=== PATIENT | male | born 1990 | race Caucasian/White ===

== ENCOUNTER → 2018-01-06 16:53 | Outpatient (CLI) | payer OTHER, BC, SELFPAY ==
[2018-01-06 16:27] VITALS: BMI 35.4
--- NOTE | 2018-01-06 17:35 | RAD_ITS ---
HISTORY: PATIENT STATES HE BENT HIS LEFT KNEE BACKWARDS ABOUT 1 WEEK AGO. PAIN IN ENTIRE LEFT KNEE. COMPARISON: None FINDINGS: XR Knee Complete 4 Views No fracture, dislocation, or bony abnormality. Joint spaces are preserved. No loose body. No joint effusion. Chronic benign appearing soft tissue calcifications at the medial knee and proximal left leg. RAD/Knee 4 or More Views IMPRESSION: 1. No fracture or bony abnormality. No acute disease. 2. Chronic benign appearing soft tissue calcifications at the medial knee and proximal left leg. at 2340 Reported and signed by: Noe Simon MD Electronically Signed: Noe Simon, at 23:38 EST Tel , Service support ,
== END ==
PROVIDERS: Referring Provider Physician Assistant; Visit Provider Physician Assistant
DX: S86.912A Strain of unspecified muscle(s) and tendon(s) at lower leg level, left leg, initial encounter (principal)
CPT/HCPCS: 73564

== ENCOUNTER → 2018-01-31 10:07 | Outpatient (CLI) | payer OTHER, SELFPAY ==
[2018-01-06 16:27] VITALS: BMI 35.4
--- NOTE | 2018-01-31 10:40 | MRI_ITS ---
STUDY: MRI LEFT KNEE REASON FOR EXAM: Pain after hyperextension injury 1 month ago. TECHNIQUE: Standardized fat and water weighted pulse sequences were obtained in all 3 orthogonal planes. COMPARISON: Radiographs 01/06/2018. FINDINGS: Normal medial meniscus. Normal hyaline cartilage of the medial femorotibial compartment. Normal medial femoral condyle and tibial plateau. Normal medial collateral ligamentous complex (MCL). Normal distal semimembranosus, gracilis and semitendinosus tendons. Normal lateral meniscus. Normal hyaline cartilage of the lateral femorotibial compartment. There is a mild bone contusion of the proximal tibia adjacent to the proximal tibiofibular articulation (T2 coronal images 15, 16). Normal proximal tibiofibular articulation. Normal lateral collateral (fibular) ligament. Normal popliteus tendon. Normal biceps femoris tendon. Normal anterior cruciate ligament (ACL). Normal posterior cruciate ligament (PCL). There is lateral tilt and slight lateral subluxation of the patella (T2 axial image 8). Normal hyaline cartilage of the patellofemoral compartment. Normal medial and lateral patellar retinaculum. Normal quadriceps tendon. Normal patellar tendon. Normal Hoffa's fat pad. There is a minimal volume of fluid in the knee joint. There is a thin medial patellar plica. The soft tissues are unremarkable. There is a nondisplaced fracture of the head of the fibula (proton-density coronal images 12-14) with associated bone edema. MRI/Lower Ext Joint Only (Routine) IMPRESSION: Nondisplaced fracture of the head of the fibula. Mild bone contusion of the proximal tibia. Lateral tilt and slight lateral subluxation of the patella. Electronically Signed: Martin Wright MD at 12:27 EST Tel , Service support ,
== END ==
PROVIDERS: Referring Provider Physician Assistant; Visit Provider Physician Assistant
DX: S82.832A Other fracture of upper and lower end of left fibula, initial encounter for closed fracture (principal); S83.012A Lateral subluxation of left patella, initial encounter; S86.912A Strain of unspecified muscle(s) and tendon(s) at lower leg level, left leg, initial encounter; S80.02XA Contusion of left knee, initial encounter; X50.1XXA Overexertion from prolonged static or awkward postures, initial encounter; Y99.0 Civilian activity done for income or pay
CPT/HCPCS: 73721

== ENCOUNTER 2018-04-21 14:30 | Outpatient (RCR) | payer OTHER, SELFPAY ==
[2018-02-04 08:08] VITALS: BMI 35.4
--- NOTE | 2018-02-16 17:06 | HP.PTEVAL ---
Patient's Visit Information KYRA PATRICIO is a 28 year old M referred to Physical Therapy by Mae Acuna DO with a diagnosis of LEFT KNEE STRAIN OF LOWER LEG. Date of Evaluation: 02/16/18 Physical Therapist: Pedro Olson PT, Cert MDT, OCS - Visit Plan Frequency: 3x /Week Duration: 6 Weeks Plan: PATIENT HAS NON-DIDPLACED FIBULAR HEAD FRACTURE. ROM/STRENGTHENING QUAD/HAMS/HIP,FUMCTION STRENGTHENING,FLEXABLITY,BIKE - Subjective Findings: This 28 y/o maale presents to physical therapy with left knee strain. Patient injuried left knee Nov 7 slipped rolling fridgerator thus caused knee into hyperextension. Lisandro has severe pain seen DR 2 [facility]. Patient had x-rays then had MRI showed non displaced fx of fibular head. Then Seen orthopedics at [facility] recommended PT.Patient had pain lateral knee . Symptoms worse with standing,squatting,kneeling. Sleeping good nigh. Denies parathesia/tingling. 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 Patient injury affect QOL and RTW. SOCAIL : single. 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 PALPTION: unremarkable. EDEMA: unremarkable. GAIT: normal mundo. AROM: left 0-120 degrees,right 0-130 degrees supine knee flexion. MMT: quads/hams 4/5,hip abd/add/extension 4-/5,ankle 5/5. STAIR: alternating. FLEXABLITY: hams mod tight,quads min tight - Special Tests L Knee Ezekiel - Meniscus: Negative L Knee Apley - Meniscus: Negative L Knee Disco Test - Meniscus: Negative L Knee Kal - ACL: Negative L Knee Anterior Drawer - ACL: Negative L Knee Posterior Drawer - PCL: Negative L Knee Valgus - MCL: Negative L Knee Varus - LCL: Negative - Goals Goal 1:: Independant with HEP. Goal Time Frame: 4-6 Weeks Goal 2:: Patient to improve AROM left knee symmtrical left to right to improve function. Goal Time Frame: 4-6 Weeks Goal 3:: Patient to improve strength quads/hams 5/5 and hip 4/5 to improve function. Goal Time Frame: 4-6 Weeks Goal 4:: Patient return to job demands with limiations Goal Time Frame: 4-6 Weeks Goal 5:: Patient to improve LFES score by 1-15 points to improve QOL and job demands Goal Time Frame: 4-6 Weeks - Rehabilitation Potential Physical Therapy Diagnosis: Patient slipped at [employer] hyperextended knee causing a non displaced fibular head fracture. with pain loss of ROM and function strength and deficits impairs job demands. Rehabilitation Potential: Good - Anticipated Interventions Patient/Client Instruction: Educate patient on: Condition, Plan of Care For the Purpose of:: To decrease pain, To increase ROM, To improve muscle performance and motor function, To increase tolerance to activity/condition/position, To improve ability of physical actions for home/community/work/leisure, To improve health of tissue, To decrease soft tissue restriction, To increase flexibility/ROM, To improve balance, To improve ability to perform tasks related to life management Therapeutic Exercise to Include: Strength training, Postural training, Flexibilty training, Dynamic Lumbar Stabilization Comment: KNEE HIP For the Purpose of:: To decrease pain, To increase ROM, To improve muscle performance and motor function, To improve ability to perform ADL's, To increase tolerance to activity/condition/position, To improve ability of physical actions for home/community/work/leisure, To improve health of tissue, To decrease soft tissue restriction, To increase flexibility/ROM, To improve ability to perform tasks related to life management TENS: Yes IF ES: Yes Cryotherapy (ice pack, ice massage): Yes For the Purpose of:: To decrease pain, To decrease swelling/inflammation, To improve health of tissue, To decrease soft tissue restriction Thank you for the opportunity to evaluate your patient. For Medicare and Medicare HMO plans, please review the plan of care and approve it. It will need to be FAXED BACK to us at [phone] for Medicare purposes. For Medicare only, by signing this I certify the plan of care. Please let me know if there are questions or concerns regarding this plan of care. Physician Signature: Date:
--- NOTE | 2018-06-01 11:20 | HP.PTDCNRP_ITS ---
HP - Discharge Summary (1) - Patient Information KYRA PATRICIO was seen in my office for initial evaluation on 02/16/18. The following Plan of Care was established for this patient: Initial Frequency: 3x /Week Initial Duration: 6 Weeks - Anticipated Interventions Patient/Client Instruction: Educate patient on: Condition, Plan of Care For the Purpose of:: To decrease pain, To increase ROM, To improve muscle performance and motor function, To increase tolerance to activity/condition/position, To improve ability of physical actions for home/community/work/leisure, To improve health of tissue, To decrease soft tis lakisha restriction, To increase flexibility/ROM, To improve balance, To improve ability to perform tasks related to life management Therapeutic Exercise to Include: Strength training, Postural training, Flexibilty training, Dynamic Lumbar Stabilization For the Purpose of:: To decrease pain, To increase ROM, To improve muscle performance and motor function, To improve ability to perform ADL's, To increase tolerance to activity/condition/position, To improve ability of physical actions for home/community/work/leisure, To improve health of tissue, To decrease soft tissue restriction, To increase flexibility/ROM, To improve ability to perform tasks related to life management TENS: Yes IF ES: Yes Cryotherapy (ice pack, ice massage): Yes For the Purpose of:: To decrease pain, To decrease swelling/inflammation, To improve health of tissue, To decrease soft tissue restriction This patient was last seen in our office 04/21/18. Pertinent comments regarding their Physical therapy will appear below: Patient seen for PT for for left knee pain for strengthening,propriocepton ,conditioning. Patient finished PT then to follow up with MD. At this point I will be discontinuing this patient from physical therapy. I w ould be happy to see this patient again in the future if found appropriate by the physician. Thank you! Pedro Olson, PT, Cert MDT, OCS
== END 2018-04-21 19:00 | disposition home or self-care (01) ==
LOC: PT 14:30
PROVIDERS: Referring Provider Orthopaedic Surgery; Visit Provider Orthopaedic Surgery
DX: S86.912D Strain of unspecified muscle(s) and tendon(s) at lower leg level, left leg, subsequent encounter (principal)
CPT/HCPCS: 97110; 97161; 97530

== ENCOUNTER → 2018-04-28 12:55 | Outpatient (CLI) | payer OTHER, SELFPAY ==
[2018-04-05 09:06] VITALS: BMI 35.4
--- NOTE | 2018-04-28 12:57 | RAD_ITS ---
STUDY: X-RAY - LEFT KNEE REASON FOR EXAM: Male, 28 years old. Follow-up fracture TECHNIQUE: 4 view(s) of the knee. COMPARISON: 06/06/2013, 01/06/2018, and report of MRI 01/31/2018. FINDINGS: Normal visualized distal femur. Normal visualized proximal tibia and fibula. Normal proximal tibiofibular articulation. There is no demonstrated fracture. Normal medial femorotibial compartment. Normal lateral femorotibial compartment. Normal patellofemoral articulation. There is no demonstrated joint effusion. Stable collection of soft tissue calcifications in the soft tissues of the medial upper calf. RAD/Knee 4 or More Views IMPRESSION: Normal x-ray examination of the knee. Electronically Signed: Tim Li MD at 22:02 EST , Service support ,
== END ==
PROVIDERS: Referring Provider Physician Assistant; Visit Provider Physician Assistant
DX: S82.832D Other fracture of upper and lower end of left fibula, subsequent encounter for closed fracture with routine healing (principal)
CPT/HCPCS: 73564